=== PATIENT | male | born 1975 | race Caucasian/White ===

== ENCOUNTER 2019-09-13 19:37 | Emergency (ER) | payer SELFPAY ==
[2019-09-13 19:57] VITALS: BP 144/101; PULSE 104; RESP 18; TEMP 36.9; O2SAT 96; BMI 30.7
--- NOTE | 2019-09-13 20:39 | ED_ITS ---
Entered by Rabia Hill, acting as scribe for Kadie Wheeler HPI - Weakness General: Chief complaint: Weakness Stated complaint: possible flu Time Seen by Provider: 09/13/19 20:35 Source: patient Mode of arrival: ambulatory History of Present Illness: HPI Narrative: 44 y/o male presents to the ED with flu-like symptoms. Pt states this started around [id number] last night. He has had chills, cold sweats and body aches. Pt reports being unable to make it into work today and slept until midday. He is concerned about the Gregory Virus because he works on appliances for a living. He states he comes in contact with people all day long when he travels to [employer] [place] for repairs. MD Complaint: generalized weakness and lack of energy Onset (ago): day(s) Duration: constant Location: generalized Severity: moderate Relieving factors: none Associated symptoms: Reports chills; Denies chest pain, confusion, dark stools, diaphoresis, dysuria, easy bruising, headache(s), syncope or vomiting Review of Systems General: Reports: other (negative unless marked) Const: Reports: chills, body aches, fatigue and night sweats; Denies: malaise or diaphoresis Eyes: Denies: change in vision or blurry vision ENMT: Denies: throat pain, painful swallowing, hoarseness, ear pain, ear discharge, Change in hearing or nasal discharge Card: Denies: chest pain, palpitations, irregular heart rhythm, syncope, pre-syncope, shortness of breath on exertion or shortness of breath when lying down Resp: Denies: wheezing, coughing up blood or chest congestion GI: Denies: abdominal pain, vomiting, vomiting blood, coffee grounds in vomit, diarrhea, constipation, cramping, blood in stool or black tarry stool : Denies: flank pain, difficulty urinating, painful urination, urinary frequency, urinary urgency, decreased urine ouput, urinary incontinence or blood in urine Musc: Denies: neck pain, back pain, extremity pain, extremity swelling, joint swelling, joint warmth or joint stiffness Skin/Breast: Denies: rash, skin tenderness or yellow skin Neuro: Denies: headache, numbness in extremities, weakness in extremities, changes in sensation, lack of coordination, difficulty walking, dizziness, vertigo or confusion Endo: Denies: excessive thirst, tired all the time, cold intolerance, excessive sweating, flushing or hot flashes Fabrice/Lymph: Denies: easy bruising, easy bleeding, petechiae or enlarged lymph nodes All/Imm: Denies: hives, throat swelling, tongue swelling, facial swelling or acute wheezing PFSH ED PFSH: Social History Smoking and tobacco status: current every day smoker Physical Exam Const: COMMON NORMALS: no apparent distress, oriented x3, no limitations and well nourished EXAM LIMITATIONS: no altered mental status GENERAL APPEARANCE: cooperative and well developed ORIENTATION/CONSCIOUSNESS: Yes awake HENMT: COMMON NORMALS: normocephalic, head/scalp atraumatic, hearing grossly normal bilaterally, external ears normal, EAC's normal, external nose normal and moist oral mucous membranes HEAD & SCALP: normal to inspection, normocephalic and atraumatic FACE & SINUS: normal facial exam and face symmetric NOSE: external nose normal and nares normal EXTERNAL EAR: Yes external ears normal EXTERNAL AUDITORY CANAL: EAC's normal MOUTH: oral and palatal mucosa normal and tongue normal Eye: COMMON NORMALS: PERRL, EOMs intact bilaterally, conjunctivae normal and no scleral icterus GENERAL EYE: normal appearance of both eyes and normal light reflex CONJUNCTIVA: Yes conjunctivae normal SCLERA: sclerae normal CORNEA: Yes corneas normal PUPIL: Yes PERRL DIRECT OPHTHALMOSCOPY: Yes normal light reflex Neck/C-Spine: COMMON NORMALS: full ROM, no lymphadenopathy, supple, no meningeal signs and no JVD GENERAL: Yes normal visual inspection and Yes trachea midline CERVICAL SPINE: Yes cervical ROM normal Chest: COMMONS NORMALS: inspection of chest normal and palpation of chest normal Resp: COMMON NORMALS: normal respiratory effort, no retractions, no use of accessory muscles and clear to auscultation bilaterally EFFORT & INSPECTION: Yes able to speak in complete sentences AUSCULTATION: clear to auscultation bilaterally Cardio: COMMON NORMALS: no JVD, regular rate, regular rhythm, S1 normal heart sound, S2 normal heart sound, no gallops, no clicks, no murmurs and no rub JUGULAR VENOUS DISTENTION: no JVD RATE: regular rate RHYTHM: regular rhythm HEART SOUNDS: S1 normal and S2 normal GI: COMMON NORMALS: soft to palpation, non-tender, no hepatosplenomegaly and no masses INSPECTION: Yes normal to inspection PALPATION: Yes soft and Yes no hepatosplenomegaly : COMMON NORMALS: Yes no CVA tenderness BLADDER/KIDNEY EXAM: Yes no CVA tenderness Back/Pelvis: COMMON NORMALS: no CVA tenderness, thoracic and lumbar spine normal to inspection, no thoracic nor lumbar tenderness and thoraco-lumbar ROM normal Extremity: COMMON NORMALS: normal to inspection, full ROM, normal capillary refill, no joint enlargement, no clubbing, cyanosis or edema and no calf tenderness Neuro: COMMON NORMALS: oriented x3, CN's II-XII intact bilaterally, moves all extremities, no focal motor deficits and no sensory deficits noted MENINGEAL SIGNS: Yes no meningeal signs Psych: COMMON NORMALS: mental status grossly normal, thought process normal, cooperative, affect normal and speech normal SPEECH: Yes normal speech THOUGHT PROCESS: normal thought process Skin: COMMON NORMALS: no rashes or lesions noted, skin turgor normal, no jaundice, no petechiae and no mottling GENERAL SKIN EXAM: no rashes or lesions noted and turgor normal Course Vital Signs: Vital signs: Vital Signs Temperature 98.5 F 09/13/19 19:57 Pulse Rate 104 H 09/13/19 19:57 Respiratory Rate 18 09/13/19 19:57 Blood Pressure 144/101 09/13/19 19:57 Pulse Oximetry 96 09/13/19 19:57 MDM - Weakness MDM Narrative: Medical decision making narrative: Basil is a nice 44-year-old male who comes in with flulike symptoms. His chest x-ray is clear and his flu swabs are negative. Despite this he states he is been exposed to the flu and would like something for it. He does not want blood work or anything further done. I will go and place him on Tamiflu as he had a known flu exposure and our test is not very good at detecting flu. I will also put him on Tessalon Perles. I have informed him if he changes his mind and wants to come back for further evaluation and care he is more than welcome to do so. Lab Data: Labs: Lab Results 09/13/19 Range/Units 20:40 Influenza Type A A g Negative (Negative) POC Influenza B Ag Negative (Negative) Imaging Data^: CXR: My impression: No acute cardiopulmonary findings. Discharge Plan Discharge Patient Disposition: Home, Self-Care Clinical Impression: Viral syndrome, Influenza Condition: Stable Prescriptions: No Action vitamin A 8,000 unit Capsule 8,000 unit PO DAILY RF: 0 vitamin B complex Tablet 1 tab PO DAILY RF: 0 zinc 50 mg Tablet 50 mg PO DAILY RF: 0 Discharge Orders: Discharge Order (Routine); Ordered 09/13/19 Ordered By: Kadie Wheeler Referrals: Silvio Rodney MD [Physician] - 1-3 days Discharge Diet: Advance as tolerated Discharge Activity: Increase activity as tolerated Patient Instructions: Influenza (ED), Viral Syndrome (ED) Activity Restrictions/Additional Instructions: Please return to the ER immediately for any of the signs or symptoms listed on your discharge instruction sheets, worsening/changing of your symptoms, you are not getting better as quickly as expected, or for ANY other cause or concerns. If you change your mind and would like more evaluation and care for your flulike symptoms you are more than welcome to return here at any time. Coding Level of Care Code ED Race Relations Professor for Chg Fwd Exam Comprehensive The documentation recorded by the Sergio fleming Ashley, accurately reflects the service I personally performed and the decisions made by Liam maza Eli N Sep 13, 2019 19:37
--- NOTE | 2019-09-13 20:41 | XR_ITS ---
WS: [id number] Portable AP upright chest, 09/13/2019 Clinical Data: cough Comparison: Portable chest, 05/31/2015. Findings: No nodules, masses or effusions are seen. The heart is normal. The pulmonary vascularity is not increased. No pneumonia or pneumothorax is seen. XR/XR chest 1V portable [id number] Impression: Negative chest.
[2019-09-13 21:14] LABS: Influenza A by IFA Negative (Negative); Influenza B by IFA Negative (Negative)
[2019-09-13 22:35] VITALS: BP 138/89; PULSE 70; RESP 16; TEMP 36.7; O2SAT 97
== END 2019-09-13 22:37 | disposition home or self-care (01) ==
PROVIDERS: Nurse Practitioner Family; Emergency Provider Emergency Medicine
DX: J11.1 Influenza due to unidentified influenza virus with other respiratory manifestations (principal); B34.9 Viral infection, unspecified; F17.200 Nicotine dependence, unspecified, uncomplicated
CPT/HCPCS: 12345; 71045; 87804; 99281; 99283

== ENCOUNTER → 2020-06-30 15:24 | Outpatient (BNVA) | payer OTHER, SELFPAY | PROVIDERS: Visit Provider Nurse Practitioner Family | DX: Z20.828 Contact with and (suspected) exposure to other viral communicable diseases (principal); J06.9 Acute upper respiratory infection, unspecified | CPT/HCPCS: 87635 ==